=== PATIENT | female | born 1950 | race Caucasian/White ===

== ENCOUNTER 2016-12-22 09:07 | Emergency (ER) | payer MEDICARE, OTHER ==
[2016-12-22 09:46] LABS: BASOPHIL 0.3 % (0-2); HCT 41.1 % (37.0-47.0); HGB 13.8 g/dl (12.5-16.0); LYMPHOCYTE 26.3 % (15-48); MCH 30.7 pg (25.0-31.0); MCHC 33.6 g/dL (32.0-36.0); MCV 91.5 fL (78.0-100.0); MONOCYTE 7.2 % (0-12); MPV 9.5 fL (6.0-9.5); NEUTROPHIL 61.2 % (41-80); PLT 303 K/uL (150-400); RBC 4.49 M/uL (4.20-5.40); RDW 13.6 % (11.5-14.0); WBC 9.6 K/uL (4.0-10.5)
[2016-12-22 10:03] LABS: INR 0.91 (0.9-1.2); PROTHROMBIN TIME 11.9 SECONDS (11.7-14.0); PTT 24.7 SECONDS (23.2-31.4)
[2016-12-22 10:04] LABS: ALBUMIN 4.1 g/dL (3.4-4.8); BILIRUBIN - TOTAL 0.4 mg/dL (0.1-1.0); CREATININE 1.1 mg/dL (0.5-1.0); GLOBULIN (CALCULATION) 2.9 g/dL (2.2-4.2); MAGNESIUM 2.01 mg/dL (1.40-2.10)
[2016-12-22 10:05] LABS: D-DIMER 0.38 ug/mLFEU (0.00-0.41)
[2016-12-22 10:10] LABS: TROPONIN T 0.027 ng/mL
[2016-12-22 10:12] LABS: CKMB 15.31 ng/mL (0.97-4.94)
== END 2016-12-22 12:56 | disposition home or self-care (01) ==
LOC: FER 09:07
PROVIDERS: Emergency Medicine
DX: S29.011A Strain of muscle and tendon of front wall of thorax, initial encounter (principal); E78.5 Hyperlipidemia, unspecified; J44.9 Chronic obstructive pulmonary disease, unspecified; F31.9 Bipolar disorder, unspecified; Z88.2 Allergy status to sulfonamides; Z88.5 Allergy status to narcotic agent; Z79.899 Other long term (current) drug therapy; X58.XXXA Exposure to other specified factors, initial encounter
CPT/HCPCS: 36415; 71010; 80053; 82550; 82553; 83735; 83874; 83880; 84484; 85025; 85379; 85610; 85730; 93005; J1885